=== PATIENT | male | born 1975 | race Caucasian/White ===

== ENCOUNTER → 2024-09-11 | Outpatient (CLI) | payer BC ==
--- NOTE | 2024-09-11 10:29 | CA ---
Transthoracic Echo Report Name: Mason Mtz Age: 49 Gender: M : 1975 Exam Date: 09/11/2024 09:06 Exam Location: [facility] Ht (in): 70 Wt (lb): 195 Ordering Physician: Jesse Le MD Attending/Referring Phys: Jesse Le MD [employer] Ivet [employer], DAPHNEY Procedure CPT: Indications: R06.00 Dyspnea Cardiac Hx: Technical Quality: Fair Contrast 1: Total Dose (mL): Contrast 2: Total Dose (mL): MEASUREMENTS (Male / Female) Normal Values 2D ECHO LV Diastolic Diameter PLAX 5.0 cm 4.2 - 5.9 / 3.9 - 5.3 cm LV Systolic Diameter PLAX 3.4 cm IVS Diastolic Thickness 0.8 cm 0.6 - 1.0 / 0.6 - 0.9 cm LVPW Diastolic Thickness 0.9 cm 0.6 - 1.0 / 0.6 - 0.9 cm LV Relative Wall Thickness 0.4 LVOT Diameter 2.2 cm LV Diastolic Volume MOD BP 150.4 cm??? 67 - 155 / 56 - 104 cm??? LV Systolic Volume MOD BP 61.0 cm??? 22 - 58 / 19 - 49 cm??? LV Ejection Fraction MOD BP 59.4 % >= 55 % LV Cardiac Index MOD BP 3392.4 cm???/min???m??? LV Diastolic Volume MOD 4C 158.8 cm??? LV Systolic Volume MOD 4C 66.5 cm??? LV Ejection Fraction MOD 4C 58.1 % LV Cardiac Index MOD 4C 3502.1 cm???/min???m??? LV Diastolic Length 4C 9.2 cm LV Systolic Length 4C 8.0 cm LV Diastolic Volume MOD 2C 139.6 cm??? LV Systolic Volume MOD 2C 51.7 cm??? LV Ejection Fraction MOD 2C 63.0 % LV Cardiac Index MOD 2C 3335.0 cm???/min???m??? LV Diastolic Length 2C 9.4 cm LV Systolic Length 2C 7.3 cm LA Volume 51.7 cm??? 18 - 58 / 22 - 52 cm??? LA Volume Index 24.5 cm???/m??? 16 - 28 cm???/m??? Ascending Aorta Diameter 3.1 cm M-MODE LV Diastolic Diameter MM 5.9 cm 4.2 - 5.9 / 3.9 - 5.3 cm LV Systolic Diameter MM 4.0 cm LV Cardiac Index MM Teich 4020.4 cm???/min???m??? IVS Diastolic Thickness MM 1.0 cm 0.6 - 1.0 / 0.6 - 0.9 cm LVPW Diastolic Thickness MM 1.0 cm 0.6 - 1.0 / 0.6 - 0.9 cm LV Relative Wall Thickness MM 0.3 0.24 - 0.42 / 0.22 - 0.42 LV Mass Index MM 114.4 g/m??? 49 - 115 / 43 - 95 g/m??? DOPPLER AV Peak Velocity 144.8 cm/s AV Peak Gradient 8.4 mmHg AV Mean Velocity 102.4 cm/s AV Mean Gradient 4.7 mmHg AV Velocity Time Integral 28.1 cm LVOT Peak Velocity 115.2 cm/s LVOT Peak Gradient 5.3 mmHg LVOT Velocity Time Integral 20.6 cm LVOT Stroke Volume 78.5 cm??? LVOT Stroke Volume Index 38.0 ml/m??? LVOT Cardiac Index 2980.3 cm???/min???m??? AV Area Cont Eq vti 2.8 cm??? AV Area Cont Eq pk 3.0 cm??? MV Area PHT 4.7 cm??? Mitral E Point Velocity 55.2 cm/s Mitral A Point Velocity 47.3 cm/s Mitral E to A Ratio 1.2 MV Deceleration Time 161.7 ms TR Peak Velocity 260.8 cm/s TR Peak Gradient 27.2 mmHg Right Atrial Pressure 5.0 mmHg Pulmonary Artery Systolic Pressu 32.2 mmHg Right Ventricular Systolic Press 32.2 mmHg PV Peak Velocity 107.7 cm/s PV Peak Gradient 4.6 mmHg FINDINGS Left Ventricle Left ventricular ejection fraction is estimated at 55-60 %. Mildly increased left ventricular mass. Mildly increased left ventricular systolic volume. No obvious regional wall motion abnormalities. Right Ventricle Normal right ventricular size and function. Right ventricular systolic pressure within normal limits. Right Atrium Normal right atrial size. Left Atrium Normal left atrial size. Mitral Valve Structurally normal mitral valve. No evidence for mitral valve prolapse. No mitral stenosis. Trace mitral regurgitation. Aortic Valve Trileaflet aortic valve. No aortic valve stenosis or regurgitation. Tricuspid Valve Structurally normal tricuspid valve. No tricuspid stenosis. Trace to mild tricuspid regurgitation. Pulmonic Valve Structurally normal pulmonic valve. No pulmonic stenosis. Trace pulmonic regurgitation. Pericardium No pericardial effusion. Aorta Normal size aortic root and proximal ascending aorta. CONCLUSIONS 1. Normal ventricular size and systolic function 2. Trace mitral with trace to mild tricuspid regurgitation Previewed by: Dr. Sarahi Lora MD (Electronically Signed) Final Date: 11 September 2024 10:28
== END | disposition home or self-care (01) ==
LOC: RADECHMAIN 08:36
PROVIDERS: ATTEND Family Medicine
DX: J45.20 Mild intermittent asthma, uncomplicated (principal); I08.1 Rheumatic disorders of both mitral and tricuspid valves
CPT/HCPCS: 93306

== ENCOUNTER → 2024-09-12 | Outpatient (CLI) | payer BC ==
--- NOTE | 2024-09-12 13:37 | CA ---
Exercise Nuclear Stress Test Report Name: Mason Mtz Exam Date: 09/12/2024 10:53 Exam Location: [facility] Ht (in): 70 Wt (lb): 195 BSA: 2.06 Ordering Phys: Jesse Le MD Referring Phys: CITLALI Technologist: IRINA Age: 49 Gender: M : 1975 Procedure CPT: Indications: I10 ESSENTIAL (PRIMARY) HYPERTENSION E66.9 R06.09 ICD-10 Codes: Patient History: Chest pressure and hypertension. Medications: Meds past 24 hrs: Pretest Chest Pain: STRESS TEST Donte Protocol Exercise Duration (min:sec): 10:[address] Depressions (mm): Angina Score: Andersen Score: Resting HR (bpm): 80 Peak HR (bpm): 184 Resting BP (mmHg): 139 / 101 Peak BP (mmHg): 163 / 90 MPHR: 170 Target HR: 145 % MPHR: 108 METS: 12.1 Total Dose: Peak Dose: Atropine: Double Product: 16404 BP Response: Stress Termination: Reached target heart rate Stress Symptoms: No chest pain or symptoms Stress Summary: The patient's target heart rate was achieved, The hemodynamic response to exercise was normal ECG ANALYSIS Resting ECG: Sinus rhythm. Incomplete right bundle branch block. No arrhythmias. Normal repolarization. Stress ECG: No ECG evidence of ischemia with exercise. Ventricular premature contraction. CONCLUSIONS 1. Good exercise tolerance 2. Normal electrocardiographic response to exercise with occasional PVCs 3. Nuclear images will be reported separately. Dr. Sarahi Lora MD (Electronically Signed) Final Date: 12 September 2024 13:36
--- NOTE | 2024-09-12 16:08 | NM ---
EXAMINATION TYPE: NM stress cardiolite complete DATE OF EXAM: 09/12/2024 COMPARISON: NONE CLINICAL INDICATION: Male, 49 years old with history of I10 essential (primary) hypertension E66.9; TECHNIQUE: After the intravenous administration of 10.1 mCi Tc 99m Sestamibi - Rest images obtained 45 minutes post injection. The patient exercised using a DARA protocol and 1 minute prior to peak exercise was injected with 25.0 mCi Tc 99m Sestamibi - Stress images obtained 30 minutes post injecti on. FINDINGS: Targeted heart rate (145 BPM) was achieved during performance of the study (184 bpm achieved). Total exercise time 10 minutes 30 seconds. Review of stress and rest SPECT images demonstrates some decreas ed perfusion along the inferior wall not corroborated on color maps. Findings suggest diaphragmatic a ttenuation artifact. Otherwise, no distinct perfusion abnormality. Gated analysis shows normal wall motion with an estimated left ventricular ejection fraction of 66 %. TID is measured normal at 0.64. IMPRESSION: No scintigraphic evidence for reversible ischemia [facility], , 09/12/2024 4:05 PM
== END | disposition home or self-care (01) ==
LOC: RADNMMAIN 08:25
PROVIDERS: ATTEND Family Medicine
DX: I10 Essential (primary) hypertension (principal); E66.9 Obesity, unspecified; R06.09 Other forms of dyspnea; Z87.891 Personal history of nicotine dependence
CPT/HCPCS: 93017; 78452; A9500